=== PATIENT | male | born 1990 | race African-American/Black ===

== ENCOUNTER 2017-07-31 01:26 | Emergency (ER) | payer SELFPAY ==
[2017-07-31] MEDS ORDERED: FAMOTIDINE 20 MG TABLET PO ONE (02:37)
[2017-07-31] MEDS ORDERED: METHYLPREDNISOLONE INJ 125 MG/2 ML SDV IM ONE (02:37)
[2017-07-31] MEDS ORDERED: DIPHENHYDRAMINE HCL 50 MG CAPSULE PO ONE (02:37)
--- NOTE | 2017-07-31 02:40 | ER Document Report ---
HPI - HPI Pain Level: Denies Notes: Patient is a 27-year-old male with no significant past medical history who presents the ED complaining of an episode of hives today while visiting a client 's home. Patient states that when he left he started developing hives on his leg arms and left shoulder, which have been slowly resolving. Patient is not sure what caused the allergy. He denies any insect bites, illness, new medications, new detergents/soap, changes in diet. Patient took some over-the- counter ibuprofen, but no other medications. He is still eating and drinking without any difficulties. Patient came to the ED today because he is supposed to go back to work tomorrow, but wanted to get more information. He denies any drug allergies. Denies any IV drug use. Denies any headache, fever, neck pain/ stiffness, drooling, swelling of lips/tongue/throat/mouth, changes in vision/ speech/mentation/hearing, URI, hoarseness, sore throat, chest pain, palpitations , syncope, cough, shortness of breath, wheeze, dyspnea, abdominal pain, nausea/ vomiting/diarrhea, urinary retention, dysuria, hematuria, loss of control of bowel or bladder, numbness/tingling, or rash. - ROS Notes: REVIEW OF SYSTEMS: CONSTITUTIONAL : Denies fever, chills, or sweats. Denies recent illness. EENT: Denies eye, ear, throat, or mouth pain or symptoms. Denies nasal or sinus congestion or discharge. Denies throat, tongue, or mouth swelling or difficulty swallowing. CARDIOVASCULAR: Denies chest pain. Denies palpitations or racing or irregular heart beat. Denies ankle edema. RESPIRATORY: Denies cough, cold, or chest congestion. Denies shortness of breath, difficulty breathing, or wheezing. GASTROINTESTINAL: Denies abdominal pain or distention. Denies nausea, vomiting , or diarrhea. Denies blood in vomitus, stools, or per rectum. Denies black, tarry stools. Denies constipation. GENITOURINARY: Denies difficulty urinating, painful urination, burning, frequency, blood in urine, or discharge. MUSCULOSKELETAL: Denies back or neck pain or stiffness. Denies joint pain or swelling. SKIN: see hpi NEUROLOGICAL: Denies confusion or altered mental status. Denies passing out or loss of consciousness. Denies dizziness or lightheadedness. Denies headache. Denies weakness or paralysis or loss of use of either side. Denies problems with gait or speech. Denies sensory loss, numbness, or tingling. ALL OTHER SYSTEMS REVIEWED AND NEGATIVE. Dictation was performed using [employer] voice recognition software - DERM Skin Color: Normal, [place] Past Medical History - Social History Smoking Status: Unknown if Ever Smoked Family History: Reviewed & Not Pertinent Patient has suicidal ideation: No Patient has homicidal ideation: No Renal/ Medical History: Denies: Hx Peritoneal Dialysis Vertical Provider Document - CONSTITUTIONAL Agree With Documented VS: Yes Notes: PHYSICAL EXAMINATION: GENERAL: Well-appearing, well-nourished and in no acute distress. HEAD: Atraumatic, normocephalic. EYES: Pupils equal round and reactive to light, extraocular movements intact, sclera anicteric, conjunctiva are normal. ENT: EAC clear b/l. TM's intact b/l without erythema, fluid, or perforation. Nares patent and without discharge. oropharynx clear without exudates. No tonsilar hypertrophy or erythema. Moist mucous membranes. No sinus tenderness. No angioedema or resp compromise noted. NECK: Normal range of motion, supple without lymphadenopathy. No rigidity/ meninigismus. LUNGS: Breath sounds clear to auscultation bilaterally and equal. No wheezes rales or rhonchi. HEART: Regular rate and rhythm without murmurs, rubs, gallops. ABDOMEN: Soft, nontender, nondistended abdomen. No guarding, no rebound. No masses appreciated. Normal bowel sounds present. No CVA tenderness bilaterally. Musculoskeletal: FROM to passive/active. Strength 5+/5. Extremities: No cyanosis, clubbing, or edema b/l. NEUROLOGICAL: Cranial nerves grossly intact. Normal speech, normal gait. Normal sensory, motor exams PSYCH: Normal mood, normal affect. SKIN: Just a few small hives noted that appear to be resolving. Non-tender. No abscess or streaks. No induration. - INFECTION CONTROL TRAVEL OUTSIDE OF THE [place] IN LAST 30 DAYS: No - RESPIRATORY O2 Sat by Pulse Oximetry: 98 Course - Re-evaluation Re-evalutation: 07/31/17 02:56 Patient is an afebrile, well-hydrated, 27-year-old male who presents the ED with hives of unknown etiology. Vitals are stable. PE otherwise unremarkable. Low suspicion/risk for any respiratory compromise, refractory hypotension, angioedema, sepsis, meningitis. Patient is aware that his condition can change from initial presentation and he needs to monitor symptoms closely and seek medical attention if any acute changes. Solu-Medrol 125 mg given IM along with Benadryl 50 mg and Pepcid 20 mg p.o. Conservative measures for symptoms with close monitoring and investigation into possible etiology. Recheck with your PCM in 3-5 days. Consider consult with an ged instructor. Return to the ED with any worsening/concerning symptoms otherwise as reviewed discharge. Patient is in agreement. - Vital Signs Vital signs: Temp Pulse Resp BP Pulse Ox 98.4 F 50 L 18 129/77 H 98 07/31/17 01:32 07/31/17 01:32 07/31/17 01:32 07/31/17 01:32 07/31/17 01:32 Discharge - Discharge Clinical Impression: Hives Condition: Stable Disposition: HOME, SELF-CARE Instructions: Acute Allergic Reaction ([facility]), Family Physicians / Practices Additional Instructions: Direction per handout Monitor for any worsening symptoms Recheck with your PCM x3-5 days consider consult with an ged instructor Return to the ED with any worsening symptoms and/or development of fever, headache, trouble swallowing, swelling of lips/tongue/throat, hoarseness, chest pain, palpitations, syncope, shortness of breath, trouble breathing, abdominal pain, n/v/d, blood in stool/urine, numbness/tingling, or other worsening symptoms that are concerning to you. Forms: Elevated Blood Pressure Referrals: [facility] [Provider Group] - Follow up as needed [facility] [Provider Group] - Follow up as needed
[2017-07-31 04:01] VITALS: BP 140/72
== END 2017-07-31 04:00 | disposition home or self-care (01) ==
LOC: ER 01:26
DX: L50.9 Urticaria, unspecified (principal)
CPT/HCPCS: 99282; 96372; J2930

== ENCOUNTER 2017-08-27 11:59 | Emergency (ER) | payer OTHER ==
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
[2017-08-27] MEDS: NORMAL SALINE 1000 ML 1,000 ML IV PRN ×2 (13:00→13:10)
[2017-08-27 13:18] LABS: ABSOLUTE EOSINOPHILS # (AUTO) 0.2 10^3/uL (0.0-0.6); ABSOLUTE LYMPHOCYTES (AUTO) 1.3 10^3/uL (0.5-4.7); ABSOLUTE MONOCYTES (AUTO) 0.5 10^3/uL (0.1-1.4); ABSOLUTE NEUT (AUTO) 1.7 10^3/uL (1.7-8.2); BASOPHILS % (AUTO) 1.1 % (0-2); EOSINOPHILS % (AUTO) 5.4 % (0-6); HEMATOCRIT 36.4 % (37.9-51.0); HEMOGLOBIN 12.9 g/dL (13.5-17.0); HGB HCT DIFFERENCE 2.3; LYMPHOCYTES % (AUTO) 34.6 % (13-45); MEAN CORPUSCULAR HEMOGLOBIN 30.3 pg (27.0-33.4); MEAN CORPUSCULAR HGB CONC 35.4 g/dL (32.0-36.0); MEAN CORPUSCULAR VOLUME 85 fl (80-97); MONOCYTES % (AUTO) 14.5 % (3-13); RED BLOOD COUNT 4.26 10^6/uL (4.35-5.55); RED CELL DISTRIBUTION WIDTH 13.3 % (11.5-14.0); SEGMENTED NEUTROPHILS % (AUTO) 44.4 % (42-78); WHITE BLOOD COUNT 3.7 10^3/uL (4.0-10.5)
[2017-08-27 13:42] LABS: ANION GAP 11 (5-19); BLOOD UREA NITROGEN 9 mg/dL (7-20); CALCIUM 9.1 mg/dL (8.4-10.2); CARBON DIOXIDE 25 mmol/L (22-30); CHLORIDE 108 mmol/L (98-107); CREATININE RESULT 0.69 mg/dL (0.52-1.25); GLUCOSE 84 mg/dL (75-110); POTASSIUM 4.3 mmol/L (3.6-5.0); SODIUM 143.8 mmol/L (137-145)
[2017-08-27 13:44] LABS: ALCOHOL < 10 mg/dL (NONE DETECTED); APPEARANCE,URINE CLEAR; BILIRUBIN,URINE NEGATIVE (NEGATIVE); GLUCOSE, URINE NEGATIVE (NEGATIVE); KETONES,URINE NEGATIVE (NEGATIVE); LEUKOCYTE ESTERASE,URINE NEGATIVE (NEGATIVE); NITRITE,URINE NEGATIVE (NEGATIVE); PROTEIN,URINE NEGATIVE (NEGATIVE)
[2017-08-27 14:00] LABS: URINE BARBITURATES SCREEN NEGATIVE; URINE METHADONE SCREEN NEGATIVE; URINE OPIATES LOW NEGATIVE; URINE PHENCYCLIDINE SCREEN NEGATIVE
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
[2017-08-27 15:25] VITALS: BP 123/65
== END 2017-08-27 15:25 | disposition home or self-care (01) ==
LOC: ER 11:59
DX: S09.90XA Unspecified injury of head, initial encounter (principal); V89.2XXA Person injured in unspecified motor-vehicle accident, traffic, initial encounter
CPT/HCPCS: 99284; 96360; 36415; 80307 ×2; 85025; 80048; 81001; 70450; J7030

== ENCOUNTER 2020-04-19 21:49 | Emergency (ER) | payer SELFPAY ==
[2020-04-19 21:56] VITALS: BP 177/87
== END 2020-04-20 01:22 | disposition left against medical advice (07) ==
LOC: ER 21:49
DX: Z53.21 Procedure and treatment not carried out due to patient leaving prior to being seen by health care provider (principal)